=== PATIENT | female | born 1935 | race Two or more races ===

== ENCOUNTER 2020-10-09 17:34 | Emergency (ER) | payer OTHER ==
[~2020-10-09] VITALS: Ht 167.6 cm; Wt 74.4 kg
[2020-10-09] MEDS ORDERED: METFORMIN HCL500 M4 PO (17:58)
[2020-10-09] MEDS ORDERED: LOSARTAN POTASS50 MG PO (17:59)
[2020-10-09] MEDS ORDERED: XARELTO20 MG PO (17:59)
[2020-10-09] MEDS ORDERED: METOPROLOL SUC100 MG PO (17:59)
[2020-10-09] MEDS ORDERED: ATORVASTATIN CA10 MG PO (17:59)
[2020-10-09] MEDS ORDERED: SYNTHROID50 MCG PO (17:59)
[2020-10-09] MEDS ORDERED: ANASTROZOLE1 MG PO (18:00)
== END 2020-10-09 19:48 | disposition home or self-care (01) ==
LOC: ER 17:34
DX: S42.291A Other displaced fracture of upper end of right humerus, initial encounter for closed fracture (principal); M79.631 Pain in right forearm; W18.09XA Striking against other object with subsequent fall, initial encounter; Y93.89 Activity, other specified; Y92.018 Other place in single-family (private) house as the place of occurrence of the external cause; Y99.8 Other external cause status

== ENCOUNTER 2020-11-25 06:44 | Day surgery (SDC) | payer OTHER ==
[~2020-11-25 06:44] MED LIST: ANASTROZOLE1 MG PO; ATORVASTATIN CA10 MG PO; LOSARTAN POTASS50 MG PO; METFORMIN HCL500 M4 PO; METOPROLOL SUC100 MG PO; SYNTHROID50 MCG PO; XARELTO20 MG PO
== END 2020-11-25 23:20 | disposition home or self-care (01) ==
LOC: CIR.AMB 06:44
PROVIDERS: ATTEND Surgery
DX: C50.411 Malignant neoplasm of upper-outer quadrant of right female breast (principal); C77.3 Secondary and unspecified malignant neoplasm of axilla and upper limb lymph nodes; Z20.822 Contact with and (suspected) exposure to COVID-19

== ENCOUNTER 2024-05-19 18:04 | Emergency (ER) | payer OTHER ==
[~2024-05-19] VITALS: Ht 167.6 cm; Wt 49.9 kg
[2024-05-19] MEDS ORDERED: MEMANTINE HCL ER7 MG (18:21)
[2024-05-19] MEDS ORDERED: REMINYL4 MG (18:21)
[2024-05-19 20:26] LABS: HEMATOCRIT 32.1 % (36.0-45.00); HEMOGLOBIN 10.8 g/dL (12.0-15.00); MEAN CELL VOLUME 82.2 fL (80.00-100.00); MEAN CORPUSCULAR HEMOGLOBIN 27.8 pg (27.00-32.0); MEAN CORPUSCULAR HGB CONC 33.8 g/dl (32.0-36.0); PLATELET COUNT 223 K/uL (150-450); RED CELL DISTRIBUTION WIDTH 16.8 % (11.5-14.5)
[2024-05-19 20:44] LABS: INR 1.05; PARTIAL THROMBOPLASTIN TIME 27.9 SECONDS (22.0-34.0); PROTHROMBIN TIME 11.4 SECONDS (9.0-11.5)
[2024-05-19 20:49] LABS: ALBUMIN 3.1 gm/dL (3.4-5.0); BILIRUBIN TOTAL 0.23 mg/dL (0.3-1.2); CALCIUM 9.2 mg/dL (8.5-10.1); CREATININE SERUM 1.21 mg/dL (0.55-1.02); GFR 42.09; GLOBULINA 4.4 G/DL (2.4-3.5); POTASSIUM 4.57 mEq/L (3.5-5.1); TOTAL PROTEIN 7.5 gm/dL (6.4-8.2)
[2024-05-19 21:38] LABS: PH,URINE 5.5 (5.0-8.0); URINE APPEARANCE Clear; URINE BILIRRUBIN Negative (NEGATIVE); URINE BLOOD Negative; URINE COLOR Yellow; URINE GLUCOSE Negative (NEGATIVE); URINE KETONE Negative (NEGATIVE); URINE LEUKOCYTE Small; URINE NITRATE Positive; URINE PROTEIN Negative (NEGATIVE)
[2024-05-19 21:39] LABS: URINE BACTERIA 5705.9 uL (0.0-1933); URINE EPITHELIAL CELLS 8.9 uL (0.0-38.8); URINE RBC 2.7 uL (0.0-20.8); URINE WBC 192.3 uL (0.0-23.2)
[2024-05-19 21:42] LABS: URINE CAST 0.15 uL (0.0-1.40)
[2024-05-19] MEDS ORDERED: CIPROFLOXACIN IN 5 % DEXTROSE 400 MG/200 ML PIGGYBAG IV STA (23:25)
[2024-05-19] MEDS ORDERED: CIPROFLOXACIN IN 5 % DEXTROSE 400 MG/200 ML PIGGYBAG IV ONE (23:41)
[2024-05-20] MEDS ORDERED: CIPRO500 MG PO (02:04)
== END 2024-05-20 03:09 ==
LOC: ER 18:06
PROVIDERS: General Practice
DX: R53.81 Other malaise (principal); N39.0 Urinary tract infection, site not specified; N93.9 Abnormal uterine and vaginal bleeding, unspecified; I10 Essential (primary) hypertension; Z88.2 Allergy status to sulfonamides
CPT/HCPCS: 36415; 51702; 76830; 96365; 99284; J3490